=== PATIENT | male | born 1980 | race Caucasian/White ===

== ENCOUNTER 2016-11-02 16:24 | Emergency (ER) | payer MEDICAID ==
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
[2016-11-02] MEDS ORDERED: OXYCODONE/APAP 5/325MG PREPACK#4 BTL TAKEHOME ONE (16:47)
[2016-11-02 17:22] VITALS: BP 123/74; PULSE 68; RESP 16; TEMP 98.4; O2SAT 96
== END 2016-11-02 17:21 | disposition home or self-care (01) ==
DX: M79.604 Pain in right leg (principal); F17.200 Nicotine dependence, unspecified, uncomplicated

== ENCOUNTER 2016-11-17 21:10 | Emergency (ER) | payer MEDICAID ==
[2016-11-17 21:20] VITALS: TEMP 98.6
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
[2016-11-17] MEDS ORDERED: OXYCODONE/APAP 5/325MG PREPACK#4 BTL TAKEHOME ONE (22:29)
[2016-11-17 22:51] VITALS: BP 142/81; PULSE 77; RESP 16; O2SAT 94
== END 2016-11-17 22:50 | disposition home or self-care (01) ==
DX: M79.604 Pain in right leg (principal); F17.200 Nicotine dependence, unspecified, uncomplicated

== ENCOUNTER 2017-02-02 08:44 | Emergency (ER) | payer MEDICAID ==
[2017-02-02 08:51] VITALS: BP 127/89; PULSE 96; RESP 20; TEMP 98.1; O2SAT 95
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
[2017-02-02] MEDS ORDERED: NS 1,000 ML IV ONE (09:24)
[2017-02-02] MEDS ORDERED: OXYCODONE/APAP 5/325 TAB PO ONE (09:25)
[2017-02-02] MEDS ORDERED: MECLIZINE HCL 25 MG TAB PO ONE (09:25)
[2017-02-02 09:33] LABS: % IMMATURE GRANULYOCYTES 0.8 % (0.0-1.1); ABSOLUTE IMMATURE GRANULOCYTES 0.08 10^3/uL (0.00-0.10); ADD DIFF? NO; ADD MORPH? NO; ADD SCAN? NO; ATYPICAL LYMPHOCYTE FLAG 0 (0-99); FRAGMENT RBC FLAG 0 (0-99); HEMOGLOBIN 17.7 g/dL (13.7-17.5); LEFT SHIFT FLG 0 (0-99); LIPEMIA HEMOLYSIS FLAG 80 (0-99); MEAN CELL HEMOGLOBIN 28.4 pg (27.9-34.1); MEAN CELL HEMOGLOBIN CONCENTR. 33.4 g/dL (32.4-36.7); MEAN CELL VOLUME 84.9 fL (81.5-99.8); MEAN PLATELET VOLUME 10.3 fL (8.7-11.7); PLATELET CLUMPS FLAG 0 (0-99); PLATELET COUNT 276 10^3/uL (150-400); RED BLOOD CELL COUNT 6.24 10^6/uL (4.40-6.38); RED CELL DISTRIBUTION WIDTH 12.9 % (11.5-15.2)
--- NOTE | 2017-02-02 09:34 | CPEKG ---
Heart Rate: 88 RR Interval: 682 P-R Interval: 164 QRSD Interval: 88 QT Interval: 340 QTC Interval: 412 P [place]: 45 QRS [place]: 71 T Wave [place]: 50 EKG Severity - NORMAL ECG - EKG Impression: SINUS RHYTHM Electronically Signed By: Ike Bermeo 02-Feb-2017 09:53:16
[2017-02-02 09:41] LABS: ANION GAP 13 mEq/L (8-16); CALCIUM 9.4 mg/dL (8.5-10.4); CARBON DIOXIDE 25 mEq/l (22-31); CHLORIDE 105 mEq/L (97-110); CREATININE 0.7 mg/dL (0.7-1.3); GLOMERULAR FILTRATION RATE > 60; GLUCOSE 76 mg/dL (70-100); POTASSIUM 4.1 mEq/L (3.5-5.2); SODIUM 143 mEq/L (134-144)
[2017-02-02 09:53] LABS: TROPONIN I < 0.012 ng/mL (0-0.034)
== END 2017-02-02 11:37 | disposition home or self-care (01) ==
DX: R42 Dizziness and giddiness (principal); M79.604 Pain in right leg; E86.9 Volume depletion, unspecified; F17.210 Nicotine dependence, cigarettes, uncomplicated

== ENCOUNTER 2017-02-14 19:28 | Emergency (ER) | payer MEDICAID ==
[2017-02-14 19:39] VITALS: BP 149/88; PULSE 98; RESP 16; TEMP 97.9; O2SAT 93
[2017-02-14] MEDS ORDERED: OXYCODONE/APAP 5/325 TAB PO ONE (20:04)
[2017-02-14] MEDS ORDERED: IBUPROFEN 600 MG TAB PO ONE (20:04)
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
[2017-02-14] MEDS ORDERED: SULFAMETHOX/TMP 800/160 MG 1 TAB PO ONE (20:05)
== END 2017-02-14 21:01 | disposition home or self-care (01) ==
DX: L02.414 Cutaneous abscess of left upper limb (principal); F17.200 Nicotine dependence, unspecified, uncomplicated